=== PATIENT | female | born 1970 | race African-American/Black ===

== ENCOUNTER 2018-05-25 07:42 | Emergency (ER) | payer OTHER ==
[2018-05-25] MEDS: KETOROLAC 60 MG INJ IM (08:13)
== END 2018-05-25 09:01 | disposition home or self-care (01) ==
LOC: FTE 07:42
DX: R05 Cough (principal); J45.909 Unspecified asthma, uncomplicated
CPT/HCPCS: 71045; 81025; 96372; 99284-25

== ENCOUNTER 2018-06-06 08:01 | Emergency (ER) | payer OTHER ==
[2018-06-06 09:09] LABS: URINE BLOOD (Dip) POC 3+ (NEGATIVE); URINE GLUCOSE (Dip) POC Negative (NEGATIVE); URINE KETONES (Dip) POC Negative (NEGATIVE); URINE LEUKOCYTE EST (Dip) POC Negative (NEGATIVE); URINE NITRITE (Dip) POC Negative (NEGATIVE); URINE TOTAL PROTEIN POC Negative (NEGATIVE)
[2018-06-06] MEDS: HYDROCODONE/APAP (5/325) TAB PO (09:20)
[2018-06-06] MEDS: KETOROLAC 30 MG INJ IM (09:21)
[2018-06-06] MEDS: SOD CHLORIDE 0.9% 1,000 ML IV (10:16)
[2018-06-06 10:18] LABS: ADD MAN DIFF? NO
[2018-06-06 10:21] LABS: WHITE BLOOD COUNT 6.3 10^3/ul (4.8-10.8)
[2018-06-06 10:21] LABS: BASOPHIL # 0.1 10^3/ul (0.0-0.1); BASOPHILS % 0.8 % (0.0-2.0); EOSINOPHILS # 0.2 10^3/ul (0.0-0.5); EOSINOPHILS % 3.4 % (0.0-7.0); HEMATOCRIT 37.3 % (37.0-47.0); HEMOGLOBIN 11.6 g/dl (12.0-16.0); LYMPHOCYTES # 1.8 10^3/ul (0.8-2.9); LYMPHOCYTES % 29.4 % (15.0-51.0); MEAN CORPUSCULAR HEMOGLOBIN 29.5 pg (29.0-33.0); MEAN CORPUSCULAR HGB CONC 31.1 g/dl (32.0-37.0); MEAN CORPUSCULAR VOLUME 94.9 fl (82.0-101.0); MEAN PLATELET VOLUME 9.4 fl (7.4-10.4); MONOCYTE # 0.6 10^3/ul (0.3-0.9); MONOCYTES % 9.1 % (0.0-11.0); NEUTROPHIL # 3.6 10^3/ul (1.6-7.5); PLATELET COUNT 294 10^3/UL (140-415); RED BLOOD COUNT 3.93 10^6/ul (4.20-5.40); RED CELL DISTRIBUTION WIDTH 13.2 % (11.5-14.5)
[2018-06-06 10:40] LABS: ALANINE AMINOTRANSFERASE 31 IU/L (13-69); ALBUMIN 3.4 g/dl (3.3-4.9); ALBUMIN/GLOBULIN RATIO 0.97; ALKALINE PHOSPHATASE 42 IU/L (42-121); ANION GAP 13 (8-16); ASPARTATE AMINO TRANSFERASE 20 IU/L (15-46); BILIRUBIN,INDIRECT 0.2 mg/dl (0-1.1); BILIRUBIN,TOTAL 0.2 mg/dl (0.2-1.3); BLOOD UREA NITROGEN 11 mg/dl (7-20); CALCIUM 9.3 mg/dl (8.4-10.2); CARBON DIOXIDE 27 mmol/L (21-31); CHLORIDE 106 mmol/L (97-110); CREATININE 0.68 mg/dl (0.44-1.00); GLUCOSE 95 mg/dl (70-220); LIPASE 139 U/L (23-300); POTASSIUM 4.4 mmol/L (3.5-5.1); SODIUM 142 mmol/L (135-144); TOTAL PROTEIN 6.9 g/dl (6.1-8.1)
== END 2018-06-06 11:54 | disposition home or self-care (01) ==
LOC: FTE 08:01
DX: N20.0 Calculus of kidney (principal); D64.9 Anemia, unspecified; I10 Essential (primary) hypertension
CPT/HCPCS: 36415; 72100; 73610; 74176; 80053; 81003; 81025; 83690; 85025; 96360; 96361; 96372; 99285-25

== ENCOUNTER 2018-12-03 22:22 | Emergency (ER) | payer OTHER ==
[2018-12-04] MEDS: HYDROmorphONE 2 MG/ML SYG IM (01:29)
== END 2018-12-04 04:14 | disposition home or self-care (01) ==
LOC: E/R 22:22
DX: S76.011A Strain of muscle, fascia and tendon of right hip, initial encounter (principal); I10 Essential (primary) hypertension; J45.909 Unspecified asthma, uncomplicated; X58.XXXA Exposure to other specified factors, initial encounter; Y92.9 Unspecified place or not applicable
CPT/HCPCS: 72170; 73510; 96372; 99284-25